=== PATIENT | female | born 1975 | race Two or more races ===

== ENCOUNTER 2018-02-23 19:11 | Emergency (ER) | payer MEDICAID ==
[~2018-02-23] VITALS: Ht 162.6 cm; Wt 99.8 kg
[2018-02-23 19:25] VITALS: BP 126/76
[2018-02-23] MEDS ORDERED: BACITRACIN ZIN1 EACH TOPIC (20:12)
[2018-02-23] MEDS ORDERED: CYCLOBENZAPRINE10 MG ORAL (20:12)
[2018-02-23 20:18] VITALS: BP 126/76
--- NOTE | 2018-02-23 21:34 | Emergency Room Report ---
History of Present Illness General Chief Complaint: Pain Source: Patient Present Illness HPI Patient's 42-year-old female who presented after increased left-sided hip pain. Patient gradual onset of symptoms. She reported having a fall approximately one month ago. Patient reported having persistent pain. Pain was worse with movements to the hip. She denies any numbness or weakness to her extremities. Patient reports having recent injury to her left leg where she cut herself shaving. She denies any fever. Allergies: Coded Allergies: No Known Allergies (Unverified , 02/23/18) Patient History Past Medical History: see triage record Last Menstrual Period: 02/06/2018 Now: No : 4 Para: 3 Reviewed Nursing Documentation: PMH: Agreed; PSxH: Agreed Nursing Documentation-PMH Hx Diabetes: Yes Review of Systems All Other Systems: negative except mentioned in HPI Physical Exam Vital Signs Date Time Temp Pulse Resp B/P (MAP) Pulse Ox O2 Delivery O2 Flow Rate FiO2 02/23/18 19:15 98.6 97 18 126/76 94 Room Air 98.6 General Appearance: well appearing, no apparent distress, alert, GCS 15, obese Head: normocephalic, atraumatic ENT: hearing grossly normal, normal voice Neck: full range of motion, supple Respiratory: no respiratory distress, speaking full sentences Musculoskeletal: no calf tenderness Neurologic: normal inspection, alert, oriented x3, normal gait Psychiatric: mood/affect normal Skin: abrasions - left leg abrasion Medical Decision Making Diagnostic Impression: Primary Impression: Muscle contusion Additional Impression: Abrasion of left leg ER Course Patient presented for extremity pain. Differential diagnosis included but was not limited to fracture, contusion, vascular insufficiency, aortic aneurysm, cellulitis. X-ray imaging of the left hip was ordered due to patient's complexity possible fracture. X-ray imaging of the left hip 2 views interpreted by me showed normal bony line without evident fracture. The patient is given prescription for muscle relaxants.The patient is advised to follow up with primary care doctor in 1-2 days. Patient is advised to return if any worsening condition or if any changes in status that are concerning. This report is dictated with [employer] mid level practitioner software which may occasionally lead to discrepancies related to use of this software. Last Vital Signs Date Time Temp Pulse Resp B/P (MAP) Pulse Ox O2 Delivery O2 Flow Rate FiO2 4/14/18 20:18 98.6 18 126/76 94 Room Air 98.6 02/23/18 19:15 97 Status: improved Disposition: HOME, SELF-CARE Condition: Stable Scripts Cyclobenzaprine Hcl* (FLEXERIL*) 10 Mg Tablet 10 MG ORAL TID PRN for Muscle Spasm, #20 TAB Prov: Tanner Robledo 02/23/18 Bacitracin Zinc* (BACITRACIN ZINC*) 1 Each Packet 1 APPLIC TOPIC THREE TIMES A DAY, #30 PACKET Prov: Tanner Robledo 02/23/18 Patient Instructions: Contusion Tanner Robledo Feb 23, 2018 21:34
--- NOTE | 2018-02-24 10:17 | Diagnostic Imaging Report ---
Indication: Reason For Exam: PAIN Technique: 2 views of the left hip Comparison: none Findings: No acute fractures. No dislocations. Joint spaces are preserved. Impression: Negative
== END 2018-02-23 20:18 | disposition home or self-care (01) ==
LOC: EMR 19:50
DX: S70.02XA Contusion of left hip, initial encounter (principal); S80.812A Abrasion, left lower leg, initial encounter; V91.29XA Fall due to collision between unspecified watercraft and other watercraft or other object, initial encounter; Y92.9 Unspecified place or not applicable; E11.9 Type 2 diabetes mellitus without complications
CPT/HCPCS: 73502; 81025; 99284

== ENCOUNTER 2018-08-11 19:06 | Emergency (ER) | payer MEDICAID ==
[~2018-08-11] VITALS: Ht 162.6 cm; Wt 102.1 kg
[~2018-08-11 19:06] MED LIST: BACITRACIN ZIN1 EACH TOPIC; CYCLOBENZAPRINE10 MG ORAL
[2018-08-11] MEDS ORDERED: Isovue-300 100ml vial INJ PRN (19:30)
[2018-08-11] MEDS ORDERED: Morphine Sulfate 4mg/ml Inj (IV USE ONLY) IVP ONE (19:30)
--- NOTE | 2018-08-11 19:33 | Emergency Room Report ---
History of Present Illness General Chief Complaint: Abdominal Pain Source: Patient Present Illness HPI Patient presents with right lower quadrant right flank pain that's worsened over the last couple of days. She's had diarrhea for several days. It has been brown and loose. She was seen by her doctor and told that her white count was elevated. She's also had abdominal cramping recently. The pain is 7/10 at this time. She denies any dysuria. There is no blood in the stool. She's been able keep down food. She is a diabetic on metformin and is not sure how her sugars have been. No documented fevers. She was supposed to provide a stool sample but has not. No travel, unusual foods or ill contacts. Min nausea with cramps and no vomiting. No upper respiratory symptomatology. No chest pain, rashes, headache. She feels slightly weak. No joint pain. 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 Now: No Reviewed Nursing Documentation: PMH: Agreed; PSxH: Agreed Nursing Documentation-PMH Hx Diabetes: Yes Review of Systems All Other Systems: negative except mentioned in HPI Physical Exam Vital Signs Date Time Temp Pulse Resp B/P (MAP) Pulse Ox O2 Delivery O2 Flow Rate FiO2 08/11/18 19:20 99.0 90 16 140/80 98 99.0 Sp02 EP Interpretation: reviewed, normal General Appearance: well appearing, no apparent distress, GCS 15 Head: normocephalic Eyes: bilateral eye normal inspection, bilateral eye PERRL ENT: moist mucus membranes Neck: supple Respiratory: lungs clear, normal breath sounds Cardiovascular #1: regular rate, rhythm Cardiovascular #2: 2+ radial (R) Gastrointestinal: no guarding, no rebound, tenderness - RLQ, overweight Genitourinary: CVA tenderness (R) - minimal Musculoskeletal: back normal, gait/station normal, normal range of motion Neurologic: alert, oriented x3, grossly normal Psychiatric: mood/affect normal Skin: normal inspection, warm/dry Medical Decision Making Diagnostic Impression: Primary Impression: Abdominal pain Qualified Codes: R10.31 - Right lower quadrant pain Additional Impressions: Diabetes Qualified Codes: E11.9 - Type 2 diabetes mellitus without complications Diarrhea Qualified Codes: R19.7 - Diarrhea, unspecified ER Course Patient presents with right flank and right lower quadrant pain. Differential includes nephritis, UTI, renal stone, appendicitis amongst others. She's had a prodrome of diarrhea so gastritis is also a consideration. She is a high risk because she has diabetes. She'll be evaluated with labs. Also CT abdomen and pelvis has been ordered. In addition the patient will be treated with IV hydration, Zofran and morphine. Labs with leukocytosis, hyperglycemia, kentonuria. She felt dizzy and head pressure after morphine. CT with normal appendix, R renal cyst, no stones. Improved with treatment. COLBERT and pressure in head resolved. Without fever, doubt invasive diarrhea needing antibiotics. Discussed findings and treatment plan. Patient stable for outpatient observation and treatment. Laboratory Tests Test 08/11/18 20:00 White Blood Count 11.2 K/UL (4.8-10.8) H Red Blood Count 4.16 M/UL (4.20-5.40) L Hemoglobin 12.4 G/DL (12.0-16.0) Hematocrit 37.3 % (37.0-47.0) Mean Corpuscular Volume 90 FL (80-99) Mean Corpuscular Hemoglobin 29.7 PG (27.0-31.0) Mean Corpuscular Hemoglobin Concent 33.2 G/DL (32.0-36.0) Red Cell Distribution Width 12.6 % (11.6-14.8) Platelet Count 322 K/UL (150-450) Mean Platelet Volume 6.5 FL (6.5-10.1) Neutrophils (%) (Auto) 54.2 % (45.0-75.0) Lymphocytes (%) (Auto) 37.6 % (20.0-45.0) Monocytes (%) (Auto) 5.9 % (1.0-10.0) Eosinophils (%) (Auto) 1.4 % (0.0-3.0) Basophils (%) (Auto) 0.9 % (0.0-2.0) Prothrombin Time 10.9 SEC (9.30-11.50) Prothrombin Time INR 1.0 (0.9-1.1) PTT 29 SEC (23-33) Urine Color Pale yellow Urine Appearance Clear Urine pH 6 (4.5-8.0) Urine Specific Lucile 1.020 (1.005-1.035) Urine Protein Negative (NEGATIVE) Urine Glucose (UA) 4+ (NEGATIVE) H Urine Ketones 1+ (NEGATIVE) H Urine Blood 1+ (NEGATIVE) H Urine Nitrite Negative (NEGATIVE) Urine Bilirubin Negative (NEGATIVE) Urine Urobilinogen Normal MG/DL (0.0-1.0) Urine Leukocyte Esterase Negative (NEGATIVE) Urine RBC 0-2 /HPF (0 - 2) Urine WBC 0 /HPF (0 - 2) Urine Squamous Epithelial Cells Few /LPF (NONE/OCC) Urine Bacteria None /HPF (NONE) Urine HCG, Qualitative Negative (NEGATIVE) Sodium Level 140 MMOL/L (136-145) Potassium Level 3.7 MMOL/L (3.5-5.1) Chloride Level 104 MMOL/L (98-107) Carbon Dioxide Level 24 MMOL/L (21-32) Anion Gap 12 mmol/L (5-15) Blood Urea Nitrogen 10 mg/dL (7-18) Creatinine 0.6 MG/DL (0.55-1.30) Estimate Glomerular Filtration Rate > 60 mL/min (>60) Glucose Level 251 MG/DL (74-106) H Calcium Level 8.8 MG/DL (8.5-10.1) Total Bilirubin 0.3 MG/DL (0.2-1.0) Aspartate Amino Transferase (AST) 22 U/L (15-37) Alanine Aminotransferase (ALT) 28 U/L (12-78) Alkaline Phosphatase 86 U/L (46-116) Total Protein 7.6 G/DL (6.4-8.2) Albumin 3.4 G/DL (3.4-5.0) Globulin 4.2 g/dL Albumin/Globulin Ratio 0.8 (1.0-2.7) L Lipase 109 U/L (73-393) CT/MRI/US Diagnostic Results CT/MRI/US Diagnostic Results : Imaging Test Ordered: abd pelvis Impression normal appendix, R renal cyst, no stones Last Vital Signs Date Time Temp Pulse Resp B/P (MAP) Pulse Ox O2 Delivery O2 Flow Rate FiO2 08/11/18 23:13 98.0 91 20 109/56 Room Air 08/11/18 22:02 98 Status: improved Disposition: HOME, SELF-CARE Condition: Improved Scripts Tramadol Hcl* (ULTRAM*) 50 Mg Tablet 50 MG ORAL Q6H PRN for For Pain, #10 TAB 0 Refills Prov: Kailash Sweeney M.D. 08/11/18 Kailash Sweeney M.D. Aug 11, 2018 19:33
[2018-08-11 20:29] LABS: APPEARANCE,URINE CLEAR; BILIRUBIN, URINE NEGATIVE (NEGATIVE); COLOR,URINE PALE YELLOW; GLUCOSE, URINE (UA) 4+ (NEGATIVE); KETONES,URINE 1+ (NEGATIVE); LEUKOCYTE ESTERASE ,URINE NEGATIVE (NEGATIVE); NITRITE,URINE NEGATIVE (NEGATIVE); PH,URINE 6 (4.5-8.0); PROTEIN,URINE NEGATIVE (NEGATIVE); UROBILINOGEN,URINE NORMAL MG/DL (0.0-1.0)
[2018-08-11 20:30] LABS: BASOPHILS % (AUTO) 0.9 % (0.0-2.0); EOSINOPHILS % (AUTO) 1.4 % (0.0-3.0); HEMATOCRIT 37.3 % (37.0-47.0); HEMOGLOBIN 12.4 G/DL (12.0-16.0); LYMPHOCYTES % (AUTO) 37.6 % (20.0-45.0); MEAN CORPUSCULAR VOLUME 90 FL (80-99); MONOCYTES % (AUTO) 5.9 % (1.0-10.0); NEUTROPHILS % (AUTO) 54.2 % (45.0-75.0); PLATELET COUNT 322 K/UL (150-450); RED BLOOD COUNT 4.16 M/UL (4.20-5.40); RED CELL DISTRIBUTION WIDTH 12.6 % (11.6-14.8); WHITE BLOOD COUNT 11.2 K/UL (4.8-10.8)
[2018-08-11 21:22] LABS: ALANINE AMINOTRANSFERASE 28 U/L (12-78); ALBUMIN 3.4 G/DL (3.4-5.0); ALBUMIN/GLOBULIN RATIO 0.8 (1.0-2.7); ALKALINE PHOSPHATASE 86 U/L (46-116); ANION GAP 12 mmol/L (5-15); ASPARTATE AMINO TRANSFERASE 22 U/L (15-37); BILIRUBIN,TOTAL 0.3 MG/DL (0.2-1.0); BLOOD UREA NITROGEN 10 mg/dL (7-18); CALCIUM 8.8 MG/DL (8.5-10.1); CARBON DIOXIDE 24 MMOL/L (21-32); CHLORIDE 104 MMOL/L (98-107); CREATININE 0.6 MG/DL (0.55-1.30); POTASSIUM 3.7 MMOL/L (3.5-5.1); SODIUM 140 MMOL/L (136-145)
[2018-08-11 22:02] VITALS: BP 109/56
[2018-08-11] MEDS ORDERED: TRAMADOL HCL50 MG ORAL (22:40)
[2018-08-11] MEDS ORDERED: METFORMIN HCL1000 M1 ORAL (22:43)
[2018-08-11 23:13] VITALS: BP 109/56
--- NOTE | 2018-08-12 10:04 | Diagnostic Imaging Report ---
Clinical Indication: Abdominal pain Technique: No oral contrast utilized, per emergency room physician request IV administration nonionic contrast. Venous phase spiral acquisition obtained through the abdomen and pelvis. Multiplanar reconstructions were generated. Total dose length product 1113.37 mGycm. CTDIvol(s) 19.75 mGy. Dose reduction achieved using automated exposure control Comparison: none Findings: The appendix is normal. No evidence of colonic diverticulosis or diverticulitis. Small bowel loops are prominent, fluid-filled, and demonstrate slightly prominent wall enhancement proximally. The distal esophagus, stomach, duodenum are unremarkable. No free or loculated intraperitoneal gas or fluid is evident. The liver is diffusely hypoattenuating. No focal hepatic abnormality. The gallbladder, bile ducts, pancreas, spleen, adrenals, left kidney are unremarkable. The right kidney demonstrates an interpolar region cyst. No renal or ureteral calculi, hydronephrosis, or hydroureter. No retroperitoneal or mesenteric mass or adenopathy. No pelvic mass or adenopathy. Small cyst or follicle is seen in the left ovary. The uterus and right ovary are unremarkable. Included lung bases demonstrate posterior dependent atelectatic changes. The heart is upper limits of normal in size. The bones demonstrate bilateral L5 spondylolysis. No evidence of spondylolisthesis. There is posterior disc bulge and osteophyte complex at L3-4, L4-5, and at T9-10. Impression: Equivocally slightly prominent fluid-filled proximal small bowel loops, could indicate moderate enteritis changes. No acute process otherwise. Normal appendix Hepatic steatosis Bilateral L5 spondylolysis without significant spondylolisthesis Other degenerative spondylosis changes, as described Other findings as noted, including posterior dependent pulmonary atelectatic changes, right renal cyst This essentially agrees with the [facility] preliminary report, with minor variation The CT scanner at [facility] is accredited by the [employer] [employer] and the scans are performed using protocols designed to limit radiation exposure to as low as reasonably achievable to attain images of sufficient resolution adequate for diagnostic evaluation.
== END 2018-08-11 22:45 | disposition home or self-care (01) ==
LOC: EMR 19:30
DX: R10.31 Right lower quadrant pain (principal); E11.9 Type 2 diabetes mellitus without complications; R19.7 Diarrhea, unspecified; Z79.84 Long term (current) use of oral hypoglycemic drugs; E66.3 Overweight; Z68.38 Body mass index [BMI] 38.0-38.9, adult; E11.65 Type 2 diabetes mellitus with hyperglycemia; D72.829 Elevated white blood cell count, unspecified; N20.0 Calculus of kidney
CPT/HCPCS: 36415; 74177; 80053; 81003; 81025; 83690; 85025; 85610; 85730; 86850; 86900; 86901; 96360; 99284; J2270; J2405; Q9967

== ENCOUNTER 2018-08-16 17:23 | Emergency (ER) | payer MEDICAID ==
[~2018-08-16] VITALS: Ht 162.6 cm; Wt 102.1 kg
[~2018-08-16 17:23] MED LIST changes: +METFORMIN HCL1000 M1 ORAL; +TRAMADOL HCL50 MG ORAL
--- NOTE | 2018-08-16 17:54 | Emergency Room Report ---
History of Present Illness General Chief Complaint: Pain Source: Patient, Medical Record Present Illness HPI 43-year-old female presents to the emergency department complaining of 8 out of 10 in severity pain radiating down the right arm in addition to subjective swelling 1 week. Patient reports that she has been taking ibuprofen without relief. Patient states she has a history of carpal tunnel syndrome and has an appointment with her neurologist in 3 days. Patient denies trauma or fall she denies previous injury to this extremity she denies neck or back pain. Patient denies fevers or chills, erythema or swollen tender lymph nodes. Patient denies recent infection or immune compromise. Patient states her pain is relieved when she raises her arm above shoulder height/head and returns when her arm is hanging down. Patient reports intermittent numbness and tingling. Patient denies skin color changes or changes in temperature of the extremity. Patient denies weakness. Patient states that she is right-hand dominant. Allergies: Coded Allergies: No Known Allergies (Unverified , 08/16/18) Patient History Past Medical History: see triage record Past Surgical History: none Pertinent Family History: none Last Menstrual Period: Jul [id number] Now: No Reviewed Nursing Documentation: PMH: Agreed; PSxH: Agreed Nursing Documentation-PMH Past Medical History: No History, Except For Hx Diabetes: Yes - DM2 Review of Systems All Other Systems: negative except mentioned in HPI Physical Exam Vital Signs Date Time Temp Pulse Resp B/P (MAP) Pulse Ox O2 Delivery O2 Flow Rate FiO2 08/16/18 17:46 98.9 86 16 132/81 96 Room Air 99.0 Sp02 EP Interpretation: reviewed, normal General Appearance: no apparent distress, alert, GCS 15, non-toxic Head: normocephalic, atraumatic Eyes: bilateral eye normal inspection, bilateral eye PERRL ENT: hearing grossly normal, normal voice Neck: full range of motion Respiratory: lungs clear, normal breath sounds, speaking full sentences Cardiovascular #1: regular rate, rhythm, no edema, normal capillary refill Cardiovascular #2: 2+ radial (R), 2+ radial (L) Musculoskeletal: back normal, gait/station normal, normal range of motion, other - pain with axial loading of the head, pain relieved above 90* position of arm., tender - TTp to the trapezius and biceps of the left arm. no obvious swelling noted. Neurologic: alert, oriented x3, responsive, motor strength/tone normal, sensory intact, normal gait, speech normal, grossly normal Psychiatric: judgement/insight normal Skin: normal color, no rash, warm/dry, well hydrated Lymphatic: no adenopathy Medical Decision Making PA Attestation Dr. gonzalez is my supervising Physician whom patient management has been discussed with. Diagnostic Impression: Primary Impression: Radiculopathy affecting upper extremity ER Course 43-year-old female presents to the emergency department complaining of 8 out of 10 in severity pain radiating down the right arm in addition to subjective swelling 1 week. Patient reports that she has been taking ibuprofen without relief. Patient states she has a history of carpal tunnel syndrome and has an appointment with her neurologist in 3 days. Patient denies trauma or fall she denies previous injury to this extremity she denies neck or back pain. Patient denies fevers or chills, erythema or swollen tender lymph nodes. Patient denies recent infection or immune compromise. Patient states her pain is relieved when she raises her arm above shoulder height/head and returns when her arm is hanging down. Patient reports intermittent numbness and tingling. Patient denies skin color changes or changes in temperature of the extremity. Patient denies weakness. Patient states that she is right-hand dominant. Ddx considered but are not limited to radiculopathy, neuropathy, paresthesia, electrolyte imbalance, cardiac dysrhythmia, stroke, DVT, cyanocobalamin deficiency. nerve palsy, neuritis, brachial plexus compression syndrome just to name a few. Vital signs: are WNL, pt. is afebrile H&PE are most consistent with radiculopathy syndrome, no evidence of vascular compromise, stoke no suspected at this time, not consistent with musculoskeletal injury. pain with axial loading of the head is highly suspicious for radiculopathy etiology. Pt is NAD in appearance, non-toxic. ORDERS: none required at this time, the diagnosis is clinical ED INTERVENTIONS: -Soma PO -Toradol IM - D/w pt. that I do not identify an emergent condition at this time, she is stable to follow up with Neurologist if conservative treatment does not relieve symptoms or for further evaluation. DISCHARGE: At this time pt. is stable for d/c to home. Will provide printed patient care instructions, and any necessary prescriptions. Care plan and follow up instructions have been discussed with the patient prior to discharge. Last Vital Signs Date Time Temp Pulse Resp B/P (MAP) Pulse Ox O2 Delivery O2 Flow Rate FiO2 08/16/18 17:46 98.9 86 16 132/81 96 Room Air 99.0 Disposition: HOME, SELF-CARE Condition: Stable Scripts Acetaminophen* (TYLENOL EXTRA STRENGTH*) 500 Mg Tablet 500 MG ORAL Q6H, #20 TAB 0 Refills Prov: Thuy Goldstein 08/16/18 Methocarbamol* (ROBAXIN-750*) 750 Mg Tablet 750 MG PO QID, #28 TAB 0 Refills Prov: Thuy Goldstein 08/16/18 Patient Instructions: Cervical Radiculopathy, [id number] Additional Instructions: Take medications as directed. Follow up with a Primary Care Provider in 3-5 days, even if your symptoms have resolved. --Please review list of primary care clinics, if you do not already have a primary care provider Return sooner to ED if new symptoms occur, or current symptoms become worse. Do not drink alcohol, drive, or operate heavy machinery while taking Robaxin ( Muscle Relaxers) as this may cause drowsiness. - Please note that this Emergency Department Report was dictated using [employer] augmentee operator technology software, occasionally this can lead to erroneous entry secondary to interpretation by the dictation equipment. Thuy Goldstein Aug 16, 2018 17:54
[2018-08-16] MEDS ORDERED: Ketorolac 30mg Inj IM ONE (18:30)
[2018-08-16 18:31] VITALS: BP 129/84
[2018-08-16] MEDS ORDERED: TYLENOL EXTRA500 MG ORAL (20:12)
[2018-08-16] MEDS ORDERED: ROBAXIN-750750 MG PO (20:12)
[2018-08-16 20:20] VITALS: BP 128/80
== END 2018-08-16 20:20 | disposition home or self-care (01) ==
LOC: EMR 19:22
DX: M54.10 Radiculopathy, site unspecified (principal); M79.601 Pain in right arm; G56.00 Carpal tunnel syndrome, unspecified upper limb; E11.9 Type 2 diabetes mellitus without complications
CPT/HCPCS: 96372; 99283; J1885

== ENCOUNTER 2018-08-24 17:41 | Emergency (ER) | payer MEDICAID ==
[~2018-08-24] VITALS: Ht 162.6 cm; Wt 102.1 kg
[~2018-08-24 17:41] MED LIST changes: +ROBAXIN-750750 MG PO; +TYLENOL EXTRA500 MG ORAL
[2018-08-24 17:49] VITALS: BP 154/90
--- NOTE | 2018-08-24 19:07 | Emergency Room Report ---
History of Present Illness General Chief Complaint: Upper Extremity Injury Source: Patient Present Illness HPI 43-year-old female presents to the emergency department complaining of progressive swelling, tenderness, erythema and now discoloration about the cuticle of the right fourth finger as well as the right thumb 3 days. Patient reports that she is diabetic and is worried that she may have an infection. Patient denies fevers or chills she reports that she has been biting her hangnails recently. She states that she attempted hot water soaks at home with no improvement. UTD with vaccinations. Denies trauma to the extremities. pt reports 2/10 in severity pain, but upon palpation pain is 8/10 in severity. denies tenderness or pain to the finger pads. denies in ability to flex/bend affected fingers. Allergies: Coded Allergies: No Known Allergies (Unverified , 08/16/18) Patient History Past Medical History: see triage record Past Surgical History: none Pertinent Family History: none Last Menstrual Period: 07/21/18 Now: No Immunizations: UTD Reviewed Nursing Documentation: PMH: Agreed Nursing Documentation-PMH Past Medical History: No History, Except For Hx Diabetes: Yes - DM2 Review of Systems All Other Systems: negative except mentioned in HPI Physical Exam Vital Signs Date Time Temp Pulse Resp B/P (MAP) Pulse Ox O2 Delivery O2 Flow Rate FiO2 08/24/18 17:44 98.5 91 18 154/90 95 Room Air 98.4 Sp02 EP Interpretation: reviewed, normal General Appearance: no apparent distress, alert, GCS 15, non-toxic Head: normocephalic Eyes: bilateral eye normal inspection, bilateral eye PERRL ENT: hearing grossly normal, normal voice Neck: full range of motion Respiratory: lungs clear, normal breath sounds, speaking full sentences Cardiovascular #1: regular rate, rhythm Musculoskeletal: back normal, gait/station normal, normal range of motion, non- tender, other - FROM, no sausage digits or finger pad tenderness. Neurologic: alert, oriented x3, responsive, motor strength/tone normal, sensory intact, speech normal, grossly normal Psychiatric: judgement/insight normal Skin: no rash, warm/dry, well hydrated, other - paronychia of the right 4th finger as well as right thumb. Procedures Incision and Drainage Incision and Drainage #1: Consent: Verbal Site: cuticle of right thumb Blade Size: 22g Needle Wound Location: upper extremity - Cuticle of the right thumb Wound's Depth, Shape: superficial Wound Length (cm): 0 Wound Explored: contaminated - pus expressed. Splint Applied?: No Sling Applied?: No Patient Tolerated: Well Complications: None Incision and Drainage #2: Consent: Verbal Site: cuticle of the Right 4th finger Blade Size: 22g Needle I & D Procedure: betadine prep Wound Location: upper extremity - cuticle of the Right 4th finger Wound's Depth, Shape: superficial Wound Length (cm): 0 Wound Explored: contaminated - pus expressed Splint Applied?: No Sling Applied?: No Patient Tolerated: Well Complications: None Medical Decision Making PA Attestation Dr. Muniz is my supervising Physician whom patient management has been discussed with. Diagnostic Impression: Primary Impression: Paronychia ER Course 43-year-old female presents to the emergency department complaining of progressive swelling, tenderness, erythema and now discoloration about the cuticle of the right fourth finger as well as the right thumb 3 days. Patient reports that she is diabetic and is worried that she may have an infection. Patient denies fevers or chills she reports that she has been biting her hangnails recently. She states that she attempted hot water soaks at home with no improvement. UTD with vaccinations. Denies trauma to the extremities. pt reports 2/10 in severity pain, but upon palpation pain is 8/10 in severity. denies tenderness or pain to the finger pads. denies in ability to flex/bend affected fingers. Ddx considered but are not limited to cellulitis, paronychia, eponychia, ingrown toe nail, fracture, d/L, gout Vital signs: are WNL, pt. is afebrile H&PE are most consistent with paronychia of the right 4th finger as well as right thumb. ORDERS: none required at this time, the diagnosis is clinical ED INTERVENTIONS: - verbal consent was received . - lesion was cleaned with betadine prep. - The cuticle was gently lifted using a sterile 25g needle to drain the paronychia of both the right thumb and 4th finger. pt. tolerated well without complication. - sterile band-aid was then applied afterward. - will d/c pt. with PO abx. DISCHARGE: At this time pt. is stable for d/c to home. Will provide printed patient care instructions, and any necessary prescriptions. Care plan and follow up instructions have been discussed with the patient prior to discharge. Last Vital Signs Date Time Temp Pulse Resp B/P (MAP) Pulse Ox O2 Delivery O2 Flow Rate FiO2 08/24/18 17:49 98.4 91 18 154/90 95 Room Air 98.4 Disposition: HOME, SELF-CARE Condition: Stable Scripts Acetaminophen* (TYLENOL EXTRA STRENGTH*) 500 Mg Tablet 500 MG ORAL Q6H, #20 TAB 0 Refills Prov: Thuy Goldstein 08/24/18 Clindamycin Hcl (CLINDAMYCIN HCL) 300 Mg Capsule 300 MG ORAL FOUR TIMES A DAY for 7 Days, #28 CAP Prov: Thuy Goldstein 08/24/18 Referrals: [facility],REFERRING (PCP) Patient Instructions: Paronychia Additional Instructions: Take medications as directed. Follow up with a Primary Care Provider in 3-5 days, even if your symptoms have resolved. --Please review list of primary care clinics, if you do not already have a primary care provider Return sooner to ED if new symptoms occur, or current symptoms become worse. - Please note that this Emergency Department Report was dictated using [employer]itroldredge engineer technology software, occasionally this can lead to erroneous entry secondary to interpretation by the dictation equipment. Thuy Goldstein Aug 24, 2018 19:07
[2018-08-24] MEDS ORDERED: TYLENOL EXTRA500 MG ORAL (19:08)
[2018-08-24] MEDS ORDERED: CLINDAMYCIN HC300 MG ORAL (19:08)
[2018-08-24 19:14] VITALS: BP 154/90
== END 2018-08-24 19:15 | disposition home or self-care (01) ==
LOC: EMR 18:05
DX: L03.011 Cellulitis of right finger (principal)
CPT/HCPCS: 10060; 99283

== ENCOUNTER 2018-11-27 19:53 | Emergency (ER) | payer MEDICAID ==
[~2018-11-27] VITALS: Ht 162.6 cm; Wt 99.8 kg
[~2018-11-27 19:53] MED LIST changes: +CLINDAMYCIN HC300 MG ORAL
[2018-11-27 20:04] VITALS: BP 122/76
--- NOTE | 2018-11-27 20:04 | NUR ---
ED Nurse Note: Pt walked in Er and c/o cough for 2 weeks. Pt is AO x 4times, VSS, on room air no distress. FAUSTOD seen Pt at bedside.
[2018-11-27] MEDS ORDERED: LOSARTAN POTAS100 MG ORAL (20:10)
[2018-11-27] MEDS ORDERED: SIMVASTATIN10 MG ORAL (20:10)
[2018-11-27] MEDS ORDERED: ACTOS15 MG ORAL (20:11)
[2018-11-27] MEDS ORDERED: FLONASE ALLERG9.9 ML NS (20:11)
[2018-11-27] MEDS ORDERED: LANTUS SOL100 UNIT/1 SUBQ (20:11)
[2018-11-27] MEDS ORDERED: HUMALOG100 UNIT/4 SUBQ (20:12)
--- NOTE | 2018-11-27 20:36 | Emergency Room Report ---
History of Present Illness General Chief Complaint: Upper Respiratory Illness Source: Patient Present Illness HPI Cough and chest pain for several weeks. Worse last few days. Myalgias. Denies sore throat, nausea, vomiting, diarrhea. The patient is not at this time. Had flu shot. Never used inhaler. Denies asthma. Pain in her body is rated 7/10 and aching worse when she moves about. No cardiac risk factors. Allergies: Coded Allergies: No Known Allergies (Unverified , 08/16/18) Patient History Past Medical History: see triage record Social History: Denies: smoking Social History Narrative working Last Menstrual Period: 2 weeks ago Now: No : 4 Para: 4 Reviewed Nursing Documentation: PMH: Agreed; PSxH: Agreed Nursing Documentation-PMH Hx Diabetes: Yes - DM2 Review of Systems All Other Systems: negative except mentioned in HPI Physical Exam Vital Signs Date Time Temp Pulse Resp B/P (MAP) Pulse Ox O2 Delivery O2 Flow Rate FiO2 11/27/18 20:03 98.4 95 15 113/66 99 Room Air Sp02 EP Interpretation: reviewed, normal General Appearance: well appearing, no apparent distress Head: normocephalic, atraumatic Eyes: bilateral eye normal inspection, bilateral eye PERRL ENT: hearing grossly normal, normal pharynx, normal voice, TMs + canals normal , moist mucus membranes Neck: full range of motion, supple Respiratory: no respiratory distress, speaking full sentences, other - pos tussive wheezing Cardiovascular #1: regular rate, rhythm Cardiovascular #2: 2+ radial (R) Gastrointestinal: normal inspection Musculoskeletal: digits/nails normal, gait/station normal, normal range of motion, no calf tenderness Neurologic: alert, normal gait, grossly normal Psychiatric: mood/affect normal Skin: no rash Medical Decision Making Diagnostic Impression: Primary Impression: URI (upper respiratory infection) Qualified Codes: J06.9 - Acute upper respiratory infection, unspecified ER Course Patient presents with chest pain, myalgias and cough. She had a flu shot. Differential includes viral upper respiratory infection, bronchospasm, pneumonia amongst others. Based on her clinical exam pneumonia is excluded. There is no significant wheezing at this time however she has posttussive sounds of bronchospasm albuterol is indicated. No evidence of pulmonary embolus. Patient instructed on use of inhaler. Discussed that antibiotics are not indicated at this time. Also instructed that the cough syrup would have something which would help with the pain. However Motrin most likely will help the most. Patient stable for outpatient observation and treatment. Last Vital Signs Date Time Temp Pulse Resp B/P (MAP) Pulse Ox O2 Delivery O2 Flow Rate FiO2 11/27/18 20:55 98.6 87 18 130/72 99 Room Air Status: improved Disposition: HOME, SELF-CARE Condition: Improved Scripts Guaifenesin/Codeine Phos* (ROBITUSSIN AC*) 118 Ml Liquid 5 ML ORAL Q6H PRN for For Cough, #90 ML 0 Refills Prov: Kailash Sweeney MD 11/27/18 Chlorpheniramine Maleate (CHLOR-TRIMETON) 4 Mg Tablet 4 MG PO Q6HR PRN for congestion, #10 TAB Prov: Kailash Sweeney MD 11/27/18 Albuterol Sulfate* (ALBUTEROL SULFATE MDI*) 8.5 Gm Hfa.aer.ad 2 PUFF INH Q6H, #1 EA 0 Refills Prov: Kailash Sweeney MD 11/27/18 Kailash Sweeney MD Nov 27, 2018 20:36
[2018-11-27] MEDS ORDERED: ALBUTEROL SULF8.5 GM INH (20:43)
[2018-11-27] MEDS ORDERED: GUAIFENESIN-CO118 M1 ORAL (20:43)
[2018-11-27] MEDS ORDERED: CHLOR-TRIMETON4 MG PO (20:43)
[2018-11-27 20:55] VITALS: BP 130/72
--- NOTE | 2018-11-27 20:55 | NUR ---
ED Nurse Note: Pt cleared DC by ERMBob. Pt is AO x 4times, VSS, on room air no distress. Belongings given to Pt. DC and meds instructions given to Pt, Pt understood well. ID bend removed. Pt walkled out unit with steady gait.
== END 2018-11-27 20:55 | disposition home or self-care (01) ==
LOC: EMR 20:25
DX: J06.9 Acute upper respiratory infection, unspecified (principal); E11.9 Type 2 diabetes mellitus without complications
CPT/HCPCS: 99283

== ENCOUNTER 2019-02-18 19:45 | Emergency (ER) | payer MEDICAID ==
[~2019-02-18] VITALS: Ht 162.6 cm; Wt 99.8 kg
[~2019-02-18 19:45] MED LIST changes: +ACTOS15 MG ORAL; +ALBUTEROL SULF8.5 GM INH; +CHLOR-TRIMETON4 MG PO; +FLONASE ALLERG9.9 ML NS; +GUAIFENESIN-CO118 M1 ORAL; +HUMALOG100 UNIT/4 SUBQ; +LANTUS SOL100 UNIT/1 SUBQ; +LOSARTAN POTAS100 MG ORAL; +SIMVASTATIN10 MG ORAL
--- NOTE | 2019-02-18 20:06 | NUR ---
ED Nurse Note: Pt has been having flu-like symptoms since Sunday02/14/19: coughing, sorethroat, COLBERT, bodyache. Pain 03/21 gisselle. Aox4, VSS. Will cont to monitor.
--- NOTE | 2019-02-18 20:17 | Emergency Room Report ---
History of Present Illness General Chief Complaint: Flu Like Symptoms Source: Patient Present Illness HPI 43-year-old female presents to the emergency department complaining of cough, nasal congestion, rhinorrhea, body aches and 5 out of 10 in severity sore throat 3 days. Patient denies fevers or chills she reports multiple ill contacts she denies recent travel she denies history of immunocompromise. Patient does report history of DM and allergies with somewhat chronic rhinitis. She states that she takes Zyrtec daily she's also reports that she used cough drops this morning which helped very minimally otherwise she denies any relieving factors. Allergies: Coded Allergies: No Known Allergies (Unverified , 08/16/18) Patient History Past Medical History: see triage record Past Surgical History: none Pertinent Family History: none Last Menstrual Period: 02/09/19 Now: No Reviewed Nursing Documentation: PMH: Agreed; PSxH: Agreed Nursing Documentation-PMH Past Medical History: No History, Except For Hx Diabetes: Yes - DM2 Review of Systems All Other Systems: negative except mentioned in HPI Physical Exam Vital Signs Date Time Temp Pulse Resp B/P (MAP) Pulse Ox O2 Delivery O2 Flow Rate FiO2 02/18/19 19:49 98.4 82 20 122/78 95 Room Air Sp02 EP Interpretation: reviewed, normal General Appearance: no apparent distress, alert, GCS 15, non-toxic Head: normocephalic, atraumatic Eyes: bilateral eye normal inspection, bilateral eye PERRL ENT: hearing grossly normal, normal pharynx, normal voice, TMs + canals normal , uvula midline, nasal congestion Neck: full range of motion Respiratory: chest non-tender, lungs clear, normal breath sounds, no rhonchi, no respiratory distress, no wheezing, speaking full sentences Cardiovascular #1: regular rate, rhythm Musculoskeletal: back normal, gait/station normal, normal range of motion, non- tender Neurologic: alert, oriented x3, responsive, motor strength/tone normal, sensory intact, speech normal, grossly normal Psychiatric: judgement/insight normal Skin: normal color, no rash, warm/dry, well hydrated Lymphatic: no adenopathy Medical Decision Making PA Attestation Dr. Muniz is my supervising Physician whom patient management has been discussed with. Diagnostic Impression: Primary Impression: Upper respiratory infection, viral ER Course 43-year-old female presents to the emergency department complaining of cough, nasal congestion, rhinorrhea, body aches and 5 out of 10 in severity sore throat 3 days. Patient denies fevers or chills she reports multiple ill contacts she denies recent travel she denies history of immunocompromise. Patient does report history of DM and allergies with somewhat chronic rhinitis. She states that she takes Zyrtec daily she's also reports that she used cough drops this morning which helped very minimally otherwise she denies any relieving factors. Ddx considered but are not limited to URI, pneumonia, PE, strep pharyngitis, meningitis. Vital signs: Pt.is afebrile VS are WNL H&PE are most consistent with bronchitis ORDERS: none required at this time, the diagnosis is clinical ED INTERVENTIONS: None required at this time. DISCHARGE: At this time pt. is stable for d/c to home. Will provide printed patient care instructions, and any necessary prescriptions. Care plan and follow up instructions have been discussed with the patient prior to discharge. Last Vital Signs Date Time Temp Pulse Resp B/P (MAP) Pulse Ox O2 Delivery O2 Flow Rate FiO2 02/18/19 20:07 82 20 Room Air 02/18/19 19:49 98.4 122/78 95 Disposition: HOME, SELF-CARE Condition: Stable Scripts Naproxen (Naproxen) 250 Mg Tablet 250 MG PO BID for 7 Days, #14 TAB Prov: Thuy Goldstein 02/18/19 Guaifenesin (MUCUS RELIEF CHEST) 400 Mg Tablet 400 MG PO TID, #21 TAB Prov: Thuy Goldstein 02/18/19 Codeine/Promethazine Hcl* (PROMETHAZINE-CODEINE SYRUP*) 118 Ml Syrup 5 ML ORAL Q6H PRN for For Cough, #120 ML 0 Refills Prov: Thuy Goldstein 02/18/19 Albuterol Sulfate* (ALBUTEROL SULFATE MDI*) 8.5 Gm Hfa.aer.ad 2 PUFF INH Q3H, #1 INH 0 Refills Prov: Thuy Goldstein 02/18/19 Departure Forms: Return to Work Return to Work Date: Feb 21, 2019 Work Restrictions: None Other Restrictions: May return Sooner if Symptoms have resolved. Return to Full Activity: Feb 21, 2019 Patient Instructions: Upper Respiratory Infection, Adult, [id number] Additional Instructions: Take medications as directed. Follow up with a Primary Care Provider in 3-5 days, even if your symptoms have resolved. --Please review list of primary care clinics, if you do not already have a primary care provider Return sooner to ED if new symptoms occur, or current symptoms become worse. Do not drink alcohol, drive, or operate heavy machinery while taking Cough Syrup as this may cause drowsiness. - Please note that this Emergency Department Report was dictated using [employer] stemmer operator technology software, occasionally this can lead to erroneous entry secondary to interpretation by the dictation equipment. Thuy Goldstein Feb 18, 2019 20:17
[2019-02-18] MEDS ORDERED: PROMETHAZINE-C118 M1 ORAL (20:20)
[2019-02-18] MEDS ORDERED: ALBUTEROL SULF8.5 GM INH (20:20)
[2019-02-18] MEDS ORDERED: MUCUS RELIEF C400 MG PO (20:20)
[2019-02-18] MEDS ORDERED: NAPROXEN250 M1 PO (20:20)
[2019-02-18 20:45] VITALS: BP 122/78
--- NOTE | 2019-02-18 20:45 | NUR ---
ER DISCHARGE NOTE: Patient is cleared to be discharged per ERMD, pt is aox4, on room air, with stable vital signs. pt was given dc and prescription instructions, pt was able to verbalize understanding, pt id band removed without complications. pt is able to ambulate with steady gait. pt took all belongings.
[2019-02-18 20:52] VITALS: BP 122/78
== END 2019-02-18 20:53 | disposition home or self-care (01) ==
LOC: EMR 19:55
DX: J06.9 Acute upper respiratory infection, unspecified (principal); B34.9 Viral infection, unspecified; E11.9 Type 2 diabetes mellitus without complications; Z79.899 Other long term (current) drug therapy
CPT/HCPCS: 99282

== ENCOUNTER 2019-05-08 18:13 | Emergency (ER) | payer MEDICAID ==
[~2019-05-08] VITALS: Ht 162.6 cm; Wt 99.8 kg
[~2019-05-08 18:13] MED LIST changes: +MUCUS RELIEF C400 MG PO; +NAPROXEN250 M1 PO; +PROMETHAZINE-C118 M1 ORAL
[2019-05-08] MEDS ORDERED: Phenazopyridine 200mg tab ORAL ONE (18:30)
[2019-05-08 18:32] VITALS: BP 125/79
--- NOTE | 2019-05-08 18:36 | NUR ---
ED Nurse Note: Patient walked in to ER c/o burning sensation upon urinating since this morning. pt aao x4 and ambulatory. skin clean and intact. calm and cooperative.
--- NOTE | 2019-05-08 18:38 | Emergency Room Report ---
History of Present Illness General Chief Complaint: Abdominal Pain Source: Patient Present Illness HPI 44-year-old female presents to the emergency department complaining of 6 out of 10 severity dysuria along with hematuria since this morning. Patient reports mild abdominal pain that radiates from the right side across the stomach that she feels only when urinating. Patient reports cramps in her back. Patient denies trauma or fall she denies fevers, chills, nausea or vomiting. Patient denies suspicion of and states that she just had her period on the first and she has had tubal ligation in the past.. Denies rashes or swollen tender lymph nodes she denies vaginal discharge. Allergies: Coded Allergies: No Known Allergies (Unverified , 08/16/18) Patient History Past Medical History: see triage record Past Surgical History: none Pertinent Family History: none Last Menstrual Period: 04/12/19 Now: No Reviewed Nursing Documentation: PMH: Agreed; PSxH: Agreed Nursing Documentation-PMH Past Medical History: No History, Except For Hx Diabetes: Yes - DM2 Review of Systems All Other Systems: negative except mentioned in HPI Physical Exam Vital Signs Date Time Temp Pulse Resp B/P (MAP) Pulse Ox O2 Delivery O2 Flow Rate FiO2 05/08/19 18:17 98.2 84 18 125/79 (94) 99 Room Air Sp02 EP Interpretation: reviewed, normal General Appearance: no apparent distress, alert, GCS 15, non-toxic Head: normocephalic, atraumatic Eyes: bilateral eye normal inspection, bilateral eye PERRL ENT: hearing grossly normal, normal voice Neck: full range of motion Respiratory: lungs clear, normal breath sounds, speaking full sentences Cardiovascular #1: regular rate, rhythm Gastrointestinal: normal bowel sounds, non tender, soft, non-distended, no guarding Genitourinary: normal inspection, no CVA tenderness Musculoskeletal: back normal, gait/station normal, normal range of motion, non- tender Neurologic: alert, oriented x3, responsive, motor strength/tone normal, sensory intact, speech normal, grossly normal Psychiatric: judgement/insight normal Skin: normal color, no rash, warm/dry, well hydrated Lymphatic: no adenopathy Medical Decision Making PA Attestation Dr. Muniz is my supervising Physician whom patient management has been discussed with. Diagnostic Impression: Primary Impression: UTI (urinary tract infection) Qualified Codes: N30.01 - Acute cystitis with hematuria ER Course 44-year-old female presents to the emergency department complaining of 6 out of 10 severity dysuria along with hematuria since this morning. Patient reports mild abdominal pain that radiates from the right side across the stomach that she feels only when urinating. Patient reports cramps in her back. Patient denies trauma or fall she denies fevers, chills, nausea or vomiting. Patient denies suspicion of and states that she just had her period on the first and she has had tubal ligation in the past.. Denies rashes or swollen tender lymph nodes she denies vaginal discharge. Ddx considered but are not limited to UTi , Pyelo, STI, Stone, Cystitis Vital signs: are WNL, pt. is afebrile H&PE are most consistent with UTI ORDERS: - UA labs are attached: moderate bacteria -Urine hcg: Negative ED INTERVENTIONS: Pyridium PO DISCHARGE: At this time pt. is stable for d/c to home. Will provide printed patient care instructions, and any necessary prescriptions. Care plan and follow up instructions have been discussed with the patient prior to discharge. Labs Test 05/08/19 18:30 Urine Color Yellow Urine Appearance Clear Urine pH 6 (4.5-8.0) Urine Specific Bishop 1.020 (1.005-1.035) Urine Protein 1+ (NEGATIVE) Urine Glucose (UA) 3+ (NEGATIVE) Urine Ketones 1+ (NEGATIVE) Urine Blood 5+ (NEGATIVE) Urine Nitrite Negative (NEGATIVE) Urine Bilirubin Negative (NEGATIVE) Urine Urobilinogen Normal MG/DL (0.0-1.0) Urine Leukocyte Esterase 1+ (NEGATIVE) Urine RBC 5-10 /HPF (0 - 2) Urine WBC 2-4 /HPF (0 - 2) Urine Squamous Epithelial Cells Few /LPF (NONE/OCC) Urine Bacteria Moderate /HPF (NONE) Urine HCG, Qualitative Negative (NEGATIVE) Last Vital Signs Date Time Temp Pulse Resp B/P (MAP) Pulse Ox O2 Delivery O2 Flow Rate FiO2 05/08/19 18:17 98.2 84 18 125/79 (94) 99 Room Air Status: improved Disposition: HOME, SELF-CARE Condition: Stable Patient Instructions: Urinary Tract Infection, [id number] Additional Instructions: Take medications as directed. Follow up with a Primary Care Provider in 3-5 days, even if your symptoms have resolved. --Please review list of primary care clinics, if you do not already have a primary care provider Return sooner to ED if new symptoms occur, or current symptoms become worse. - Please note that this Emergency Department Report was dictated using [employer] clerk technology software, occasionally this can lead to erroneous entry secondary to interpretation by the dictation equipment. Thuy Goldstein May 08, 2019 18:38
[2019-05-08 18:48] LABS: APPEARANCE,URINE CLEAR; BILIRUBIN, URINE NEGATIVE (NEGATIVE); GLUCOSE, URINE (UA) 3+ (NEGATIVE); KETONES,URINE 1+ (NEGATIVE); LEUKOCYTE ESTERASE ,URINE 1+ (NEGATIVE); NITRITE,URINE NEGATIVE (NEGATIVE); PH,URINE 6 (4.5-8.0); PROTEIN,URINE 1+ (NEGATIVE); UROBILINOGEN,URINE NORMAL MG/DL (0.0-1.0)
[2019-05-08 18:55] LABS: COLOR,URINE YELLOW
--- NOTE | 2019-05-08 19:04 | NUR ---
HAND-OFF: Report given to NOE Merlos. no order to carry at this moment.
[2019-05-08] MEDS ORDERED: NITROFURANTOIN100 M2 ORAL (19:23)
[2019-05-08] MEDS ORDERED: PHENAZOPYRIDIN100 MG ORAL (19:29)
[2019-05-08 19:34] VITALS: BP 120/78
--- NOTE | 2019-05-08 19:35 | NUR ---
ED Nurse Note: pt cleared to be d/c per ERMD, pt discharge and aftercare instruction provided w/ prescription, pt education done via discussion and handout, pt advised to follow up with pcp or return to ED if changes in condition, pt verbalized understanding and agrees with plan,vss, ambulatory w/ steady gait, left w/ all belongings, id band removed.
== END 2019-05-08 19:35 | disposition home or self-care (01) ==
LOC: EMR 18:25
DX: N30.01 Acute cystitis with hematuria (principal); E11.9 Type 2 diabetes mellitus without complications
CPT/HCPCS: 81003; 81025; 87086; 87181; 99283

== ENCOUNTER 2019-07-24 16:16 | Emergency (ER) | payer MEDICAID ==
[~2019-07-24] VITALS: Ht 162.6 cm; Wt 99.8 kg
[~2019-07-24 16:16] MED LIST changes: +NITROFURANTOIN100 M2 ORAL; +PHENAZOPYRIDIN100 MG ORAL
[2019-07-24 16:30] VITALS: BP 126/80
--- NOTE | 2019-07-24 16:30 | NUR ---
ED Nurse Note: Patient walked in to ER from home due to Rt side of arm pain 06/21 without trauma or injury. Patient is alert and oriented x4 and ambulatory. Skin clean and intact. Calm and cooperative. No acute distress noted at this moment.
[2019-07-24] MEDS ORDERED: Ketorolac 30mg Inj IM ONE (17:00)
--- NOTE | 2019-07-24 17:00 | NUR ---
ED Nurse Note: x-ray at bedside.
--- NOTE | 2019-07-24 17:40 | NUR ---
ED Nurse Note: ERPA at bedside.
--- NOTE | 2019-07-24 17:51 | Emergency Room Report ---
History of Present Illness General Chief Complaint: Upper Extremity Injury Source: Patient Present Illness HPI 45-year-old female with history of diabetes currently controlled with insulin here complaining of pain and swelling in her right elbow x2 weeks. Patient reported 2 weeks ago she hit her elbow however did not have any imaging or work- up done. Patient reports the pain has been progressively getting worse and has noticed more swelling. Has taken ibuprofen with minimal relief. Rating the pain 10 out of 10 without any radiation patient also has history of carpal tunnel however is localizing the pain to the right elbow and right medial forearm at this time. Denies any heavy lifting. Denies chest pain, shortness of breath, palpitation, or other associated symptoms. Allergies: Coded Allergies: No Known Allergies (Unverified , 08/16/18) Patient History Past Medical History: see triage record Past Surgical History: unable to obtain Pertinent Family History: none Last Menstrual Period: 07/12/19 Now: No Immunizations: UTD Reviewed Nursing Documentation: PMH: Agreed; PSxH: Agreed Nursing Documentation-PMH Past Medical History: No History, Except For Hx Diabetes: Yes Review of Systems All Other Systems: negative except mentioned in HPI Physical Exam Vital Signs Date Time Temp Pulse Resp B/P (MAP) Pulse Ox O2 Delivery O2 Flow Rate FiO2 07/24/19 16:30 98.0 76 18 126/80 98 Room Air Sp02 EP Interpretation: reviewed, normal General Appearance: no apparent distress, alert, GCS 15, non-toxic Head: normocephalic, atraumatic Eyes: bilateral eye normal inspection, bilateral eye PERRL ENT: hearing grossly normal, normal pharynx, no angioedema, normal voice Neck: full range of motion, supple/symm/no masses Respiratory: chest non-tender, lungs clear, normal breath sounds, speaking full sentences Cardiovascular #1: regular rate, rhythm, no edema, no murmur, normal capillary refill Cardiovascular #2: 2+ radial (R), 2+ radial (L) Gastrointestinal: normal bowel sounds, non tender, soft, non-distended, no guarding, no rebound Rectal: deferred Genitourinary: normal inspection, no CVA tenderness Musculoskeletal: back normal, gait/station normal, tender - Right medial elbow Neurologic: alert, oriented x3, responsive, motor strength/tone normal, sensory intact, speech normal Psychiatric: judgement/insight normal, memory normal, mood/affect normal, no suicidal/homicidal ideation Skin: no rash Lymphatic: no adenopathy Procedures Splinting Splinting : Consent: Verbal Location: Right elbow Hand-Made Type: plaster Pre-Proc Neuro Vasc Exam: normal Post-Proc Neuro Vasc Exam: normal Patient Tolerated: Well Complications: None Medical Decision Making PA Attestation All my diagnosis and treatment plans were reviewed ad discussed with my supervising physician Dr. Bowen Diagnostic Impression: Primary Impression: Elbow fracture, right ER Course 45-year-old female with history of diabetes currently controlled with insulin here complaining of pain and swelling in her right elbow x2 weeks. Patient reported 2 weeks ago she hit her elbow however did not have any imaging or work- up done. Patient reports the pain has been progressively getting worse and has noticed more swelling. Has taken ibuprofen with minimal relief. Rating the pain 10 out of 10 without any radiation patient also has history of carpal tunnel however is localizing the pain to the right elbow and right medial forearm at this time. Denies any heavy lifting. Denies chest pain, shortness of breath, palpitation, or other associated symptoms. Ddx considered but are not limited to : Elbow fracture versus sprain versus strain Vital signs: are WNL, pt. is afebrile H&PE are most consistent with: Elbow fracture ORDERS: Right elbow x-ray, ibuprofen, Robaxin ED INTERVENTIONS: Splinting of right elbow DISCHARGE: At this time pt. is stable for d/c to home. Will provide printed patient care instructions, and any necessary prescriptions. Care plan and follow up instructions have been discussed with the patient prior to discharge. Patient to follow-up with Ortho avoid driving avoid lifting heavy objects Other X-Ray Diagnostic Results Other X-Ray Diagnostic Results : X-Ray ordered: Right elbow # of Views/Limited Vs Complete: 3 View Indication: Pain EP Interpretation: Yes PA Xray: Interpretation reviewed, by supervising MD, and agrees with findings. Interpretation: no dislocation, other - Fracture of right medial elbow Impression: Other - Fracture right medial elbow Electronically Signed by: Seth Conti PA-C Last Vital Signs Date Time Temp Pulse Resp B/P (MAP) Pulse Ox O2 Delivery O2 Flow Rate FiO2 07/24/19 17:22 98.2 07/24/19 16:34 88 18 112/70 (84) 95 Room Air Disposition: HOME, SELF-CARE Condition: Stable Scripts Methocarbamol* (ROBAXIN-500*) 500 Mg Tablet 500 MG ORAL TID PRN for For Pain, #15 TAB 0 Refills Prov: Seth Mendieta 07/24/19 Ibuprofen (Ibu) 800 Mg Tablet 800 MG PO TID, #30 TAB Prov: Seth Mendieta 07/24/19 Referrals: [facility],REFERRING (PCP) Patient Instructions: Elbow Fracture, Simple Additional Instructions: Follow-up with your primary care provider for referral to collection specialist take medication as directed keep splint on. If worsening symptoms return to the emergency room Seth Mendieta Jul 24, 2019 17:51
[2019-07-24] MEDS ORDERED: IBU800 MG PO (17:52)
[2019-07-24] MEDS ORDERED: ROBAXIN-500MG ORAL (17:52)
--- NOTE | 2019-07-24 17:58 | NUR ---
ED Nurse Note: splint applied on Rt arm at bedside.
[2019-07-24 18:00] VITALS: BP 118/75
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
--- NOTE | 2019-07-24 18:06 | NUR ---
ED Nurse Note: spling applied on splint site.
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
== END 2019-07-24 18:00 | disposition home or self-care (01) ==
LOC: EMR 17:16
DX: S42.401A Unspecified fracture of lower end of right humerus, initial encounter for closed fracture (principal); E11.9 Type 2 diabetes mellitus without complications; W22.8XXA Striking against or struck by other objects, initial encounter; Y92.9 Unspecified place or not applicable
CPT/HCPCS: 73080; 96372; J1885; Z7502; 29105; 99283

== ENCOUNTER 2019-09-01 14:45 | Emergency (ER) | payer MEDICAID ==
[~2019-09-01] VITALS: Ht 162.6 cm; Wt 99.8 kg
[~2019-09-01 14:45] MED LIST changes: +IBU800 MG PO; +ROBAXIN-500MG ORAL
[2019-09-01 15:01] VITALS: BP 120/70
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
[2019-09-01] MEDS ORDERED: Omnipaque-300 100ml vial INJ PRN (15:15)
--- NOTE | 2019-09-01 15:35 | NUR ---
ED Nurse Note: blood and urine sample sent down lab. pt was taken to CT by tech.
[2019-09-01 15:53] LABS: APPEARANCE,URINE SLIGHTLY CLOUDY; BILIRUBIN, URINE NEGATIVE (NEGATIVE); GLUCOSE, URINE (UA) 4+ (NEGATIVE); KETONES,URINE 3+ (NEGATIVE); LEUKOCYTE ESTERASE ,URINE NEGATIVE (NEGATIVE); NITRITE,URINE NEGATIVE (NEGATIVE); PH,URINE 5 (4.5-8.0); PROTEIN,URINE 2+ (NEGATIVE); UROBILINOGEN,URINE NORMAL MG/DL (0.0-1.0)
[2019-09-01 15:59] LABS: BASOPHILS % (AUTO) 0.8 % (0.0-2.0); EOSINOPHILS % (AUTO) 1.1 % (0.0-3.0); HEMATOCRIT 39.4 % (37.0-47.0); HEMOGLOBIN 13.3 G/DL (12.0-16.0); LYMPHOCYTES % (AUTO) 27.4 % (20.0-45.0); MEAN CORPUSCULAR VOLUME 86 FL (80-99); NEUTROPHILS % (AUTO) 65.7 % (45.0-75.0); PLATELET COUNT 312 K/UL (150-450); RED BLOOD COUNT 4.55 M/UL (4.20-5.40); RED CELL DISTRIBUTION WIDTH 11.6 % (11.6-14.8); WHITE BLOOD COUNT 12.3 K/UL (4.8-10.8)
[2019-09-01 16:02] LABS: ANION GAP 13 mmol/L (5-15); BLOOD UREA NITROGEN 8 mg/dL (7-18); CARBON DIOXIDE 26 MMOL/L (21-32); CHLORIDE 101 MMOL/L (98-107); CREATININE 0.7 MG/DL (0.55-1.30); POTASSIUM 3.5 MMOL/L (3.5-5.1); SODIUM 140 MMOL/L (136-145)
[2019-09-01 16:07] LABS: ALANINE AMINOTRANSFERASE 42 U/L (12-78); ALBUMIN 3.4 G/DL (3.4-5.0); ALBUMIN/GLOBULIN RATIO 0.8 (1.0-2.7); ALKALINE PHOSPHATASE 83 U/L (46-116); ASPARTATE AMINO TRANSFERASE 28 U/L (15-37); BILIRUBIN,TOTAL 0.5 MG/DL (0.2-1.0)
[2019-09-01 16:15] LABS: COLOR,URINE YELLOW
--- NOTE | 2019-09-01 17:01 | NUR ---
ED Nurse Note: pt returned back to room from imaging.
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
[2019-09-01 17:36] VITALS: BP 131/74
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
--- NOTE | 2019-09-01 18:16 | NUR ---
ED Nurse Note: pt in bed resting, awake. VSS. izquierdo by bedside.
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
[2019-09-01] MEDS ORDERED: IBU800 MG PO (19:20)
[2019-09-01] MEDS ORDERED: ROBAXIN-500MG ORAL (19:20)
[2019-09-01 19:28] VITALS: BP 128/84
--- NOTE | 2019-09-01 19:28 | NUR ---
ER DISCHARGE NOTE: Patient is cleared to be discharged per ERMD, pt is aox4, on room air, with stable vital signs. pt was given dc and prescription instructions, pt was able to verbalize understanding, pt id band and iv site removed without complications. pt is able to ambulate with steady gait. pt took all belongings.
--- NOTE | 2019-09-02 10:57 | Emergency Room Report ---
Physical Exam Vital Signs Date Time Temp Pulse Resp B/P (MAP) Pulse Ox O2 Delivery O2 Flow Rate FiO2 09/01/19 14:51 98.4 102 16 116/69 (85) 97 Room Air Medical Decision Making Diagnostic Impression: Primary Impression: Abdominal contusion Additional Impressions: Head contusion UTI (urinary tract infection) ER Course Made patient aware of underlying breast tissue asymmetry, patient states she will follow-up and get a mammogram. Last Vital Signs Date Time Temp Pulse Resp B/P (MAP) Pulse Ox O2 Delivery O2 Flow Rate FiO2 09/01/19 19:28 97.5 70 18 128/84 99 Room Air Disposition: HOME, SELF-CARE Condition: Stable Scripts Methocarbamol* (ROBAXIN-500*) 500 Mg Tablet 500 MG ORAL TID PRN for For Pain, #15 TAB 0 Refills Prov: Seth Mendieta 09/01/19 Ibuprofen (Ibu) 800 Mg Tablet 800 MG PO TID, #30 TAB Prov: Seth Mendieta 09/01/19 Departure Forms: Return to Work Return to Work in (Days): 3 Return to Work Date: Sep 04, 2019 Patient Instructions: Contusion, Urinary Tract Infection, [id number] Additional Instructions: Take medication as directed, follow-up with your primary care provider, if worsening symptoms return to emergency room Adam De Anda MD Sep 02, 2019 10:57
== END 2019-09-01 19:28 | disposition home or self-care (01) ==
LOC: EMR 15:05
DX: S30.1XXA Contusion of abdominal wall, initial encounter (principal); S00.93XA Contusion of unspecified part of head, initial encounter; N39.0 Urinary tract infection, site not specified; E11.9 Type 2 diabetes mellitus without complications; Z79.4 Long term (current) use of insulin; Z79.84 Long term (current) use of oral hypoglycemic drugs; V43.52XA Car driver injured in collision with other type car in traffic accident, initial encounter; Y92.410 Unspecified street and highway as the place of occurrence of the external cause
CPT/HCPCS: 36415; 70450; 71260; 74177; 76700; 76830; 76856; 80053; 81001; 81025; 85025; 85610; 85730; 86850; 86900; 86901; 87086; Q9967; Z7502; 99284

== ENCOUNTER 2019-11-03 16:16 | Emergency (ER) | payer MEDICAID ==
[~2019-11-03] VITALS: Ht 162.6 cm; Wt 99.8 kg
--- NOTE | 2019-11-03 16:25 | NUR ---
ED Nurse Note: Pt walked in from home c/o headache/cough/ear pain/throat pain 8/10 x 2 days. Pain goes down from head into shoulders. Respirations are even and unlabored on room air. Vital signs stable as documented.
[2019-11-03] MEDS ORDERED: ZYRTEC10 MG ORAL (16:33)
--- NOTE | 2019-11-03 16:34 | Emergency Room Report ---
History of Present Illness General Chief Complaint: Upper Respiratory Illness Source: Patient, Medical Record Present Illness HPI 44-year-old female with history of type 2 diabetes currently taking insulin and metformin here complaining of 2 weeks of sore throat, sinus pressure, congestion. Denies any fever and chills, neck stiffness at this time. Complains of a dry cough, and wheezing at night. Reports that last time she came down with the symptoms she was given albuterol inhaler and has been using that with some relief. Denies chest pain, shortness of breath, palpitation, abdominal pain, nausea vomiting at this time. Patient appears to be stable with stable vital signs. Allergies: Coded Allergies: No Known Allergies (Unverified , 08/16/18) Patient History Past Medical History: see triage record Past Surgical History: unable to obtain Pertinent Family History: none Last Menstrual Period: 10/27/2019 Now: No Immunizations: UTD Reviewed Nursing Documentation: PMH: Agreed; PSxH: Agreed Nursing Documentation-PMH Past Medical History: No History, Except For Hx Diabetes: Yes Review of Systems All Other Systems: negative except mentioned in HPI Physical Exam Vital Signs Date Time Temp Pulse Resp B/P (MAP) Pulse Ox O2 Delivery O2 Flow Rate FiO2 11/03/19 16:28 98.6 98 16 111/78 (89) 99 Room Air Sp02 EP Interpretation: reviewed, normal General Appearance: no apparent distress, alert, GCS 15, non-toxic Head: normocephalic, atraumatic Eyes: bilateral eye normal inspection, bilateral eye PERRL ENT: normal voice, nasal congestion, pharyngeal erythema, other - Sinus pressure, frontal sinuses tender to palpation Neck: full range of motion, supple, thyroid normal, no meningismus, no bony tend, no carotid bruits, supple/symm/no masses Respiratory: chest non-tender, lungs clear, normal breath sounds, no rhonchi, no respiratory distress, no retraction, no accessory muscle use, no wheezing, speaking full sentences Cardiovascular #1: regular rate, rhythm, no edema, no murmur Gastrointestinal: non tender, soft Rectal: deferred Genitourinary: no CVA tenderness Musculoskeletal: back normal Neurologic: alert, motor strength/tone normal, oriented x3, sensory intact, responsive, speech normal Psychiatric: judgement/insight normal Skin: no rash Lymphatic: no adenopathy Medical Decision Making PA Attestation Diagnosis and treatment plans were reviewed and discussed with my supervising physician Dr. De Anda Diagnostic Impression: Primary Impression: Sinusitis ER Course 44-year-old female with history of type 2 diabetes currently taking insulin and metformin here complaining of 2 weeks of sore throat, sinus pressure, congestion. Denies any fever and chills, neck stiffness at this time. Complains of a dry cough, and wheezing at night. Reports that last time she came down with the symptoms she was given albuterol inhaler and has been using that with some relief. Denies chest pain, shortness of breath, palpitation, abdominal pain, nausea vomiting at this time. Patient appears to be stable with stable vital signs. Ddx considered but are not limited to: Sinusitis ,bronchitis, PNA, URI viral, bacterial bronchitis Vital signs: are WNL, pt. is afebrile H&PE are most consistent with: Sinusitis ORDERS: Augmentin, Tessalon Perles, albuterol inhaler ED INTERVENTIONS: None required at this time. DISCHARGE: At this time pt. is stable for d/c to home. Will provide printed patient care instructions, and any necessary prescriptions. Care plan and follow up instructions have been discussed with the patient prior to discharge. Patient reports that she has Flonase at home and was advised to use over-the- counter decongestant addition to the prescribed medication. Follow-up with her primary care provider, if worsening symptoms return to the emergency room Last Vital Signs Date Time Temp Pulse Resp B/P (MAP) Pulse Ox O2 Delivery O2 Flow Rate FiO2 11/03/19 16:28 98.6 98 16 111/78 (89) 99 Room Air Disposition: HOME, SELF-CARE Condition: Stable Scripts Albuterol Sulfate (VENTOLIN HFA) 18 Gm Hfa.aer.ad 2 PUFFS INH EVERY 6 HOURS, #18 GM 0 Refills Prov: Seth Mendieta 11/03/19 Benzonatate* (TESSALON PERLE*) 100 Mg Capsule 100 MG ORAL THREE TIMES A DAY, #21 PERLE Prov: Seth Mendieta 11/03/19 Amoxicillin/Potassium Clav 875-125* (AUGMENTIN 875-125 TABLET*) 1 Each Tablet 1 TAB ORAL TWICE A DAY for 10 Days, #20 TAB Prov: Seth Mendieta 11/03/19 Patient Instructions: Sinusitis, Adult, [id number] Additional Instructions: Take medication as directed, follow-up with your primary care provider if worsening symptoms return to the emergency room Seth Mendieta Nov 03, 2019 16:34
[2019-11-03] MEDS ORDERED: TESSALON PERLE100 MG ORAL (16:35)
[2019-11-03] MEDS ORDERED: VENTOLIN HFA18 GM INH (16:35)
[2019-11-03] MEDS ORDERED: AUGMENTIN 875-1 EAC1 ORAL (16:35)
[2019-11-03 16:41] VITALS: BP 111/78
[2019-11-03 16:45] VITALS: BP 111/72
--- NOTE | 2019-11-03 16:45 | NUR ---
ED Nurse Note: Pt cleared by health care Provider for discharge. DC instructions/prescription was given and explained to pt and verbalized understanding of teachings. All medical devices such as ID band removed. Pt is AAO x4, ambulatory and left with all personal belongings.
== END 2019-11-03 16:45 | disposition home or self-care (01) ==
LOC: EMR 16:33
DX: J32.9 Chronic sinusitis, unspecified (principal); E11.9 Type 2 diabetes mellitus without complications; Z79.4 Long term (current) use of insulin; Z79.84 Long term (current) use of oral hypoglycemic drugs
CPT/HCPCS: 99282

== ENCOUNTER 2019-11-06 21:19 | Emergency (ER) | payer MEDICAID ==
[~2019-11-06] VITALS: Ht 162.6 cm; Wt 99.8 kg
[~2019-11-06 21:19] MED LIST changes: +AUGMENTIN 875-1 EAC1 ORAL; +TESSALON PERLE100 MG ORAL; +VENTOLIN HFA18 GM INH; +ZYRTEC10 MG ORAL
--- NOTE | 2019-11-06 21:50 | NUR ---
ED Nurse Note: walk-in patient with complaints of unresolved sinus infection, worsening cough and congestion ERMd at bedside.
[2019-11-06] MEDS ORDERED: PROMETHAZINE-C118 M1 ORAL (21:57)
[2019-11-06 21:58] VITALS: BP 122/76
--- NOTE | 2019-11-06 21:58 | Emergency Room Report ---
History of Present Illness General Chief Complaint: Upper Respiratory Illness Source: Patient Present Illness HPI Is a 44-year-old female with a history of diabetes. She presents with chief complaint of cough congestion and chest pain. Onset for about 2 weeks. She got better in a week and then symptoms began again 3 days later. She was here 3 days ago and was diagnosed with sinusitis. She was prescribed Augmentin albuterol and Tessalon Perles. She said is not helping. Coughing is nonproductive nature. She has burning chest leg pain with coughing. Denies any other complaint. No fever chills. No nausea no vomiting. Allergies: Coded Allergies: No Known Allergies (Unverified , 08/16/18) Patient History Past Medical History: see triage record, old chart reviewed, DM Past Surgical History: other Pertinent Family History: none Social History: Denies: smoking Last Menstrual Period: 10/21/19 Now: No Immunizations: other Reviewed Nursing Documentation: PMH: Agreed; PSxH: Agreed Nursing Documentation-PMH Hx Diabetes: Yes Review of Systems Eye: Denies: eye pain, blurred vision ENT: Denies: ear pain, nose congestion, throat swelling Respiratory: Reports: cough, shortness of breath Cardiovascular: Reports: chest pain; Denies: palpitations Gastrointestinal: Denies: abdominal pain, diarrhea, nausea, vomiting Musculoskeletal: Denies: back pain, joint pain Skin: Denies: rash Neurological: Denies: headache, numbness Endocrine: Denies: increased thirst, increased urine Hematologic/Lymphatic: Denies: easy bruising All Other Systems: negative except mentioned in HPI Physical Exam Vital Signs Date Time Temp Pulse Resp B/P (MAP) Pulse Ox O2 Delivery O2 Flow Rate FiO2 11/06/19 21:35 97.9 93 19 122/76 (91) 96 Room Air Vitals normal Sp02 EP Interpretation: reviewed, normal General Appearance: well appearing, no apparent distress, alert, obese Head: normocephalic, atraumatic Eyes: bilateral eye PERRL, bilateral eye EOMI ENT: hearing grossly normal, normal pharynx Neck: full range of motion, supple, no meningismus Respiratory: chest non-tender, lungs clear, normal breath sounds Cardiovascular #1: regular rate, rhythm, no murmur Gastrointestinal: normal bowel sounds, non tender, no mass, no organomegaly, no bruit, non-distended Musculoskeletal: back normal, normal range of motion, gait/station normal Psychiatric: mood/affect normal Medical Decision Making Diagnostic Impression: Primary Impression: Upper respiratory infection Qualified Codes: J06.9 - Acute upper respiratory infection, unspecified ER Course This presents with upper respiratory infection. Most likely viral in nature. No evidence of ACS, PE, dissection to my view. Will discharge home. Last Vital Signs Date Time Temp Pulse Resp B/P (MAP) Pulse Ox O2 Delivery O2 Flow Rate FiO2 11/06/19 21:35 97.9 93 19 122/76 (91) 96 Room Air Status: unchanged Disposition: HOME, SELF-CARE Condition: Stable Scripts Codeine/Promethazine Hcl* (PROMETHAZINE-CODEINE SYRUP*) 118 Ml Syrup 5 ML ORAL Q6H PRN for For Cough, #118 ML 0 Refills Prov: Serafin Romero MD 11/06/19 Patient Instructions: Upper Respiratory Infection, Adult Additional Instructions: Increase fluids. Follow-up with your doctor in 7 days. Continue with your antibiotics. Return if symptoms worsen. Serafin Romero MD Nov 06, 2019 21:58
[2019-11-06 22:00] VITALS: BP 122/76
--- NOTE | 2019-11-06 22:01 | NUR ---
ED Nurse Note: Patient cleared for discharge by ERMD, patient verbalized understanding of discharge insutrutions. Id band removed, patient departed with all belongings.
== END 2019-11-06 22:20 | disposition home or self-care (01) ==
LOC: EMR 21:45
DX: J06.9 Acute upper respiratory infection, unspecified (principal); E11.9 Type 2 diabetes mellitus without complications
CPT/HCPCS: 99282

== ENCOUNTER 2020-09-26 18:23 | Emergency (ER) | payer MEDICAID ==
[~2020-09-26] VITALS: Ht 162.6 cm; Wt 99.8 kg
[2020-09-26 18:30] VITALS: BP 154/81
--- NOTE | 2020-09-26 18:30 | NUR ---
ED Nurse Note: Pt walked in to ED from home c/o left lateral hip pain radiaiting to lower left back x1 month. Denies injury/ trauma to the area. AAOx4, verbally responsive. Afebrile. ERMD at bedside.
--- NOTE | 2020-09-26 18:41 | Emergency Room Report ---
History of Present Illness General Chief Complaint: Lower Back Pain or Injury Source: Patient Present Illness HPI Disclaimer: Please note that this report is being documented using [employer] technology. This can lead to erroneous entry secondary to incorrect interpretation by the dictating instrument. HPI: 45-year-old female presents for evaluation of left hip pain. Symptoms present approximately 1 month but worsened over the past 3 days. She notes pain beginning over the left side of the lower back and buttocks radiating down the lateral portion of the left leg terminating mid thigh. Reports a shooting pain. Also notes a firm nodule on the left buttock but denies recent injury, bite, trauma. Able to ambulate. Has been using ibuprofen with some relief though pain worsening over the past few days. Denies unilateral weakness, urinary retention, fecal incontinence, numbness. 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 EOMI. Resp: Normal work of breathing Skin: Intact. No abrasions, laceration or rash over the exposed skin MSK: Normal tone and bulk. Moving all extremities. No obvious deformity. Pelvis is stable. Ambulating without difficulty. Neuro: Awake and alert. Mentating appropriately. Sensation intact over the dermatomes lower extremities bilaterally. Spine: Mild tenderness palpation over the left paraspinal region extending over the left gluteal. Medical Decision Making Diagnostic Impression: Primary Impression: Sciatica ER Course Is a 45-year-old female presenting for evaluation of left-sided hip and back pain. Differential includes is not limited to musculoskeletal injury, strain, radiculopathy, sciatica. No clinical evidence of cauda equina syndrome or spinal epidural abscess or metastatic disease. Previous CT shows degenerative disc disease in the lumbar spine. X-rays of the lumbar spine do not show acute osseous injury or loss of vertebral height. X-rays of the pelvis do not show fracture or dislocation. Believe her symptoms are related to sciatica and degenerative disc disease of lumbar spine. Patient will be discharged with muscle relaxer, light duty, stretching exercises. Will follow up with her PMD for referral to orthopedic surgery and physical therapy. Instructed to return with new or worsening symptoms. She understands and agrees with this treatment plan. Other X-Ray Diagnostic Results Other X-Ray Diagnostic Results #1: X-Ray ordered: Lumbar spine # of Views/Limited Vs Complete: 2 View Indication: Pain Interpretation: no dislocation, no soft tissue swelling, no fractures Impression: No acute disease Electronically Signed by: Electronically signed by Dr. Javier Rothman MD Other X-Ray Diagnostic Results #2: X-Ray ordered: Left hip # of Views/Limited Vs Complete: 3 View Indication: Pain EP Interpretation: Yes Interpretation: no dislocation, no soft tissue swelling, no fractures Impression: No acute disease Electronically Signed by: Electronically signed by Dr. Javier Rothman MD Last Vital Signs Date Time Temp Pulse Resp B/P (MAP) Pulse Ox O2 Delivery O2 Flow Rate FiO2 09/26/20 18:30 97.9 98 15 154/81 98 Room Air Disposition: HOME, SELF-CARE Condition: Stable Scripts Hydrocodone/Acetaminophen 5-325* (HYDROCODONE/ACETAMINOPHEN 5-325*) 1 Each Tablet 1 TAB ORAL Q6H PRN for For Pain, #10 TAB 0 Refills Prov: Javier Rothman MD 09/26/20 Cyclobenzaprine Hcl* (FLEXERIL*) 10 Mg Tablet 10 MG ORAL THREE TIMES A DAY, #20 TAB Prov: Javier Rothman MD 09/26/20 Javier Rothman MD Sep 26, 2020 18:41
[2020-09-26] MEDS ORDERED: HYDROcodone/Acetamin 5/325 tab ORAL ONE (18:45)
--- NOTE | 2020-09-26 19:00 | NUR ---
HAND-OFF: Report given to NOE Chan. Pt in stable condition; plan of care endorsed.
--- NOTE | 2020-09-26 19:11 | NUR ---
ED Nurse Note: pt went down for xray
[2020-09-26] MEDS ORDERED: CYCLOBENZAPRINE10 MG ORAL (19:30)
[2020-09-26] MEDS ORDERED: HYDROCODON-ACE1 EA15 ORAL (19:30)
[2020-09-26 19:40] VITALS: BP 131/82
--- NOTE | 2020-09-26 19:40 | NUR ---
ER DISCHARGE NOTE: Patient is cleared to be discharged per ERMD, pt is aox4, on room air, with stable vital signs. pt was given dc instructions, electronic prescriptions sent to preferred pharmacy, and work note given to pt. pt was able to verbalize understanding, pt id band removed. pt is able to ambulate with steady gait. pt took all belongings.
--- NOTE | 2020-09-26 19:41 | Diagnostic Imaging Report ---
EXAM: XR Left Hip With Pelvis When Performed, 1 View CLINICAL HISTORY: PAIN TECHNIQUE: Frontal view of the left hip with pelvis when performed. COMPARISON: No relevant prior studies available. FINDINGS: Bones/joints: No acute fracture. No dislocation. Soft tissues: Unremarkable. IMPRESSION: Normal left hip x-ray.
--- NOTE | 2020-09-26 19:42 | Diagnostic Imaging Report ---
EXAM: XR Lumbosacral Spine, 2 or 3 Views CLINICAL HISTORY: PAIN TECHNIQUE: Frontal and lateral views of the lumbar spine and sacrum. COMPARISON: No relevant prior studies available. FINDINGS: Vertebrae: Unremarkable. No acute fracture. Normal alignment. Sacrum/coccyx: Unremarkable as visualized. No acute fracture. Disc spaces: No acute findings. No significant narrowing. Soft tissues: Unremarkable. IMPRESSION: Normal lumbar spine x-rays.
== END 2020-09-26 19:40 | disposition home or self-care (01) ==
LOC: EMR 18:51
DX: M54.42 Lumbago with sciatica, left side (principal); E11.9 Type 2 diabetes mellitus without complications
CPT/HCPCS: 72020; 73500; Z7502; 99283

== ENCOUNTER 2020-11-20 16:59 | Emergency (ER) | payer MEDICAID ==
[~2020-11-20] VITALS: Ht 162.6 cm; Wt 97.5 kg
[~2020-11-20 16:59] MED LIST changes: +HYDROCODON-ACE1 EA15 ORAL
--- NOTE | 2020-11-20 17:57 | Emergency Room Report ---
History of Present Illness General Chief Complaint: Skin Rash/Abscess Source: Patient Present Illness HPI 45 yO female w. hx of DM presents to the ED c/o 05/21 localized pain, redness and swelling to the right thumb progressive x 1 week. Pt. reports she went to the Urgent care and was rx'd keflex. She reports her symptoms have not improved. Pt. denies fevers or chills. She reports being right hand dominant. She is UTD with her vaccinations. Pt. denies trauma. She denies paresthesias. 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 COVID-19 Screening: Negative COVID-19 COVID-19 Testing Source: 2 weeks ago Patient History Past Medical History: see triage record Past Surgical History: none Pertinent Family History: none Now: No Reviewed Nursing Documentation: PMH: Agreed; PSxH: Agreed Nursing Documentation-PMH Hx Cardiac Problems: Yes - High cholesterol Hx Hypertension: No Hx Diabetes: Yes Review of Systems All Other Systems: negative except mentioned in HPI Physical Exam Vital Signs Date Time Temp Pulse Resp B/P (MAP) Pulse Ox O2 Delivery O2 Flow Rate FiO2 11/20/20 17:16 98.4 87 20 153/72 (99) 96 Room Air Sp02 EP Interpretation: reviewed, normal General Appearance: no apparent distress, alert, GCS 15, non-toxic Head: normocephalic, atraumatic Eyes: bilateral eye normal inspection, bilateral eye PERRL ENT: hearing grossly normal, normal voice Neck: full range of motion Respiratory: lungs clear, normal breath sounds, speaking full sentences Cardiovascular #1: regular rate, rhythm Musculoskeletal: normal range of motion, gait/station normal, non-tender Neurologic: alert, motor strength/tone normal, oriented x3, sensory intact, responsive, speech normal Psychiatric: judgement/insight normal Skin: other - erythema, swelling and warmth to the lateral cuticle area of the right thumb. No finger pad tenderness. localized to ST only. Procedures Incision and Drainage Incision and Drainage : Consent: Verbal Site: right thumb Blade Size: 21G Needle I & D Procedure: betadine prep, sterile drapes applied, sterile dressing applied Wound Location: upper extremity - right thumb Wound's Depth, Shape: superficial, flap Wound Length (cm): 1 Wound Explored: contaminated - green opaque fluid dc from under the cuticle line Splint Applied?: No Sling Applied?: No Patient Tolerated: Well Complications: None Medical Decision Making PA Attestation Dr. Robledo is my supervising Physician whom patient management has been discussed with. Diagnostic Impression: Primary Impression: Paronychia ER Course 45 yO female presents to the ED c/o 05/21 localized pain, redness and swelling to the right thumb progressive x 1 week. Pt. reports she went to the Urgent care and was rx'd keflex. She reports her symptoms have not improved. Pt. denies fevers or chills. She reports being right hand dominant. She is UTD with her vaccinations. Pt. denies trauma. She denies paresthesias. Ddx considered but are not limited to cellulitis, paronychia, eponychia, ingrown toe nail, fracture, d/L, gout Vital signs: are WNL, pt. is afebrile H&PE are most consistent with left middle finger paronychia ORDERS: none required at this time, the diagnosis is clinical ED INTERVENTIONS: -Motrin PO -Augmentin PO --PROCEDURE: I & D - verbal consent was received . - lesion was cleaned with Betadine prep. - Small incision using a sterile 21g needle to drain the paronychia. pt. tolerated well without complication. - sterile band-aid was then applied afterward. - will d/c pt. with PO abx. DISCHARGE: At this time pt. is stable for d/c to home. Will provide printed patient care instructions, and any necessary prescriptions. Care plan and follow up instructions have been discussed with the patient prior to discharge. Last Vital Signs Date Time Temp Pulse Resp B/P (MAP) Pulse Ox O2 Delivery O2 Flow Rate FiO2 11/20/20 17:16 98.4 87 20 153/72 (99) 96 Room Air Disposition: HOME, SELF-CARE Condition: Stable Scripts Acetaminophen With Codeine (T#3) (TYLENOL #3 TAB*) Y Tab 1 TAB ORAL Q6H PRN for For Pain for 7 Days, #14 TAB Prov: Thuy Goldstein 11/20/20 Mupirocin* (MUPIROCIN*) 22 Gm Oint...g. 1 APPLIC TOPIC THREE TIMES A DAY, #22 GM Prov: Thuy Goldstein 11/20/20 Amoxicillin/Potassium Clav Er 1,000-62.5 (AMOXICILLIN-CLAV ER 1,000-62.5) 1 Each Tab.er.12h 1 TAB ORAL EVERY 12 HOURS for 7 Days, #14 TAB Prov: Thuy Goldstein 11/20/20 Patient Instructions: Paronychia, [id number] Additional Instructions: Take medications as directed. Do not drink alcohol, drive, or operate heavy machinery while taking Tylenol # 3 as this may cause drowsiness. Follow up with a Primary Care Provider in 3-5 days, even if your symptoms have resolved. Return sooner to ED if new symptoms occur, or current symptoms become worse. - Please note that this Emergency Department Report was dictated using [employer] technology software, occasionally this can lead to erroneous entry secondary to interpretation by the dictation equipment. Thuy Goldstein Nov 20, 2020 17:57
[2020-11-20] MEDS ORDERED: Augmentin 875mg Tab ORAL ONE (18:00)
[2020-11-20 18:04] VITALS: BP 153/72
[2020-11-20] MEDS ORDERED: ACETAMINOPHEN-1 EAC1 ORAL (18:56)
[2020-11-20] MEDS ORDERED: AMOXICILLIN-CL1 EACH ORAL (18:56)
[2020-11-20] MEDS ORDERED: MUPIROCIN22 GM TOPIC (18:56)
[2020-11-20 19:00] VITALS: BP 153/72
== END 2020-11-20 19:00 | disposition home or self-care (01) ==
LOC: EMR 18:03
DX: L03.011 Cellulitis of right finger (principal); E11.9 Type 2 diabetes mellitus without complications; E78.00 Pure hypercholesterolemia, unspecified
CPT/HCPCS: 10060; Z7502; 99282